=== PATIENT | female | born 1975 | race Caucasian/White ===

== ENCOUNTER 2016-06-05 05:12 | Inpatient (IN) | payer MEDICAID ==
--- NOTE | 2016-06-05 05:29 | ED Physician Chart ---
Chief Complaint/HPI - Patient Information Date Seen:: 06/05/16 Time Seen:: 05:15 Chief Complaint:: epigastric pain History of Present Illness:: 41-year-old female history of cirrhosis and hypertension, complains of acute, severe, burning, 10 out of 10, nonradiating, epigastric and right upper quadrant abdominal pain that started about 1 hour prior to arrival. Has associated nausea and one episode of vomiting. Allergies:: Allergies Allergy/AdvReac Type Severity Reaction Status Date / Time No Known Allergies Allergy Verified 06/05/16 05:19 Historian:: Patient Review:: Nurse's Note Reviewed Review of Systems - Review of Systems Other: Complete system review otherwise unremarkable except as noted in HPI. Past Medical History - Past Medical History Past Medical History: HTN, Other (cirrhosis) Family History: None Social History: Non Smoker, No Alcohol, No Drug Use, Surgical History: None Psychiatricy History: None Medication: Reviewed Family Medical History - Family Member Mother History Unknown: Yes Ethnicity: Non- Physical Exam - Physical Examination Other:: INITIAL VITAL SIGNS: Reviewed by me GENERAL: Alert and interactive. Mild distress due to pain HEAD: Head is normocephalic and atraumatic EYES: EOMI. . No scleral icterus. No conjunctival injection ENT: Moist mucous membranes. NECK: Supple. No masses. Full range of motion RESPIRATORY: No tachypnea. Clear breath sounds bilaterally. No wheezing, rales, or rhonchi CV: Regular rate and rhythm. No murmurs, rubs, or gallops ABDOMEN: Soft, non-distended, tenderness to palpation along the epigastrium and upper quadrant pain with guarding on deep palpation. No rebound. No masses. EXTREMITIES: No deformity. No cyanosis. No edema. SKIN: Warm and dry. No obvious rashes. NEUROLOGIC: Alert and oriented. Face is symmetric. Speech is normal. Moves all extremities equally. Motor and sensory distally intact. Labs/Radiology/EKG Results - Lab Results Results: Lab Results 06/05/16 06/05/16 06/05/16 Range/Units 05:20 05:20 05:20 WBC 16.9 H (4.8-10.8) Th/cmm RBC 3.58 L (3.80-5.10) Mil/cmm Hgb 11.6 L (11.7-15.5) gm/dL Hct 34.1 L (35.0-45.0) % MCV 95.4 (81-100) fl MCH 32.6 H (27.0-31.0) pg MCHC Differential 34.1 (28.0-36.0) pg RDW 14.7 (11.5-20.0) % Plt Count 215 (150-400) Th/cmm MPV 7.7 fl PT 14.3 H (9.5-11.5) SECONDS INR 1.36 (0.5-1.4) Sodium (136-145) mEq/L Potassium (3.5-5.1) mEq/L Chloride (98-107) mEq/L Carbon Dioxide (21.0-31.0) mEq/L Anion Gap (7.0-16.0) BUN (7-25) mg/dL Creatinine (0.6-1.2) mg/dL Est GFR ( Amer) (>90) ml/min Est GFR (Non-Af Amer) ml/min BUN/Creatinine Ratio Glucose (70-105) mg/dL Whole Bld Lactic Acid (0.60-1.99) mmol/L Calcium (8.6-10.3) mg/dL Total Bilirubin (0.3-1.0) mg/dL AST (13-39) U/L ALT (7-52) U/L Alkaline Phosphatase (34-104) U/L Creatine Kinase 29 L (30-223) U/L Troponin I (0.01-0.05) ng/mL B-Natriuretic Peptide (5.0-100.0) pg/mL Total Protein (6.0-8.3) gm/dL Albumin (3.7-5.3) gm/dL Globulin gm/dL Albumin/Globulin Ratio (1.0-1.8) Triglycerides 145 (<150) mg/dL Cholesterol 370 H (<200) mg/dL LDL Cholesterol Direct 127 (75-193) mg/dL HDL Cholesterol 56 (23-92) mg/dL Lipase (11-82) U/L 06/05/16 06/05/16 06/05/16 Range/Units 05:20 05:20 05:20 WBC (4.8-10.8) Th/cmm RBC (3.80-5.10) Mil/cmm Hgb (11.7-15.5) gm/dL Hct (35.0-45.0) % MCV (81-100) fl MCH (27.0-31.0) pg MCHC Differential (28.0-36.0) pg RDW (11.5-20.0) % Plt Count (150-400) Th/cmm MPV fl PT (9.5-11.5) SECONDS INR (0.5-1.4) Sodium 136 (136-145) mEq/L Potassium 3.7 (3.5-5.1) mEq/L Chloride 105 (98-107) mEq/L Carbon Dioxide 24.0 (21.0-31.0) mEq/L Anion Gap 10.7 (7.0-16.0) BUN 13 (7-25) mg/dL Creatinine 0.8 (0.6-1.2) mg/dL Est GFR ( Amer) > 60.0 (>90) ml/min Est GFR (Non-Af Amer) > 60.0 ml/min BUN/Creatinine Ratio 16.3 Glucose 98 (70-105) mg/dL Whole Bld Lactic Acid (0.60-1.99) mmol/L Calcium 9.0 (8.6-10.3) mg/dL Total Bilirubin 3.0 H (0.3-1.0) mg/dL AST 59 H (13-39) U/L ALT 39 (7-52) U/L Alkaline Phosphatase 114 H (34-104) U/L Creatine Kinase (30-223) U/L Troponin I 0.02 (0.01-0.05) ng/mL B-Natriuretic Peptide 211.0 H (5.0-100.0) pg/mL Total Protein 7.6 (6.0-8.3) gm/dL Albumin 3.1 L (3.7-5.3) gm/dL Globulin 4.5 gm/dL Albumin/Globulin Ratio 0.7 L (1.0-1.8) Triglycerides (<150) mg/dL Cholesterol (<200) mg/dL LDL Cholesterol Direct (75-193) mg/dL HDL Cholesterol (23-92) mg/dL Lipase 79 (11-82) U/L 06/05/16 Range/Units 05:57 WBC (4.8-10.8) Th/cmm RBC (3.80-5.10) Mil/cmm Hgb (11.7-15.5) gm/dL Hct (35.0-45.0) % MCV (81-100) fl MCH (27.0-31.0) pg MCHC Differential (28.0-36.0) pg RDW (11.5-20.0) % Plt Count (150-400) Th/cmm MPV fl PT (9.5-11.5) SECONDS INR (0.5-1.4) Sodium (136-145) mEq/L Potassium (3.5-5.1) mEq/L Chloride (98-107) mEq/L Carbon Dioxide (21.0-31.0) mEq/L Anion Gap (7.0-16.0) BUN (7-25) mg/dL Creatinine (0.6-1.2) mg/dL Est GFR ( Amer) (>90) ml/min Est GFR (Non-Af Amer) ml/min BUN/Creatinine Ratio Glucose (70-105) mg/dL Whole Bld Lactic Acid 0.85 (0.60-1.99) mmol/L Calcium (8.6-10.3) mg/dL Total Bilirubin (0.3-1.0) mg/dL AST (13-39) U/L ALT (7-52) U/L Alkaline Phosphatase (34-104) U/L Creatine Kinase (30-223) U/L Troponin I (0.01-0.05) ng/mL B-Natriuretic Peptide (5.0-100.0) pg/mL Total Protein (6.0-8.3) gm/dL Albumin (3.7-5.3) gm/dL Globulin gm/dL Albumin/Globulin Ratio (1.0-1.8) Triglycerides (<150) mg/dL Cholesterol (<200) mg/dL LDL Cholesterol Direct (75-193) mg/dL HDL Cholesterol (23-92) mg/dL Lipase (11-82) U/L - Radiology Results Results: Ultrasound abdomen quadrant. Preliminary report Thickened gallbladder wall with surrounding inflammation Hepatomegaly - EKG Interpretations Comments:: 12-lead EKG Interpretation by Calos Dupree MD: Normal Sinus Rhythm with ventricular rate of 73 beats per minute Normal axis Normal intervals No acute ST or T wave changes. No obvious STEMI ED Septic Shock - . Is Septic Shock (SBP<90, OR Lactate>4 mmol\L) present?: No Reassessment (Disposition) - Reassessment Reassessment:: Patient appears to have acalculus cholecystitis. Gave IV Zosyn. Also gave IV antiemetics and IV analgesics. Symptoms improved. Discussed with admitting physician. Patient admitted for further workup and treatment. Reassessment Condition:: Improved - Diagnosis Diagnosis:: Acalculous cholecystitis Hypertension - Patient Disposition Discharge/Transfer:: Acute Care w/in [facility] Admitted to:: Med/Surg Spoke to:: Stephanie Wells Time:: 07:01 Condition at Disposition:: Improved ED Discharge Plan - Patient Disposition Admit/Discharge/Transfer: Acute Care w/in this hosp
[2016-06-05] MEDS ORDERED: Prochlorperazine 5 mg/mL 2mL Vial IVP STA (05:34)
[2016-06-05] MEDS ORDERED: Sodium Chloride 0.9% 1,000 ML IV ONE (05:34)
[2016-06-05] MEDS ORDERED: Donnatal Liq 5 ML UDC PO STA (05:41)
[2016-06-05] MEDS ORDERED: Maalox 30 mL Cup PO STA (05:41)
[2016-06-05] MEDS ORDERED: Prochlorperazine 5 mg/mL 2mL Vial ONE (05:41)
[2016-06-05 05:47] LABS: HEMATOCRIT 34.1 % (35.0-45.0); HEMOGLOBIN 11.6 gm/dL (11.7-15.5); MEAN CELL VOLUME 95.4 fl (81-100); MEAN CORPUSCULAR HEMOGLOBIN 32.6 pg (27.0-31.0); MEAN CORPUSCULAR HGB CONC 34.1 pg (28.0-36.0); MEAN PLATELET VOLUME 7.7 fl; PLATELET COUNT 215 Th/cmm (150-400); RED BLOOD COUNT 3.58 Mil/cmm (3.80-5.10); RED CELL DISTRIBUTION WIDTH 14.7 % (11.5-20.0)
[2016-06-05 05:50] LABS: WHITE BLOOD COUNT 16.9 Th/cmm (4.8-10.8)
[2016-06-05] MEDS ORDERED: Maalox 30 mL Cup ONE (06:00)
[2016-06-05] MEDS ORDERED: Donnatal Liq 5 ML UDC ONE (06:01)
[2016-06-05 06:04] LABS: INR 1.36 (0.5-1.4); PROTHROMBIN TIME (TEST) 14.3 SECONDS (9.5-11.5)
[2016-06-05 06:09] LABS: CHOLESTEROL 370 mg/dL (<200); TRIGLYCERIDES 145 mg/dL (<150)
[2016-06-05 06:11] LABS: ALB/GLOB RATIO 0.7 (1.0-1.8); ALKALINE PHOSPHATASE 114 U/L (34-104); ANION GAP 10.7 (7.0-16.0); BUN - UREA NITROGEN 13 mg/dL (7-25); BUN/CREATININE RATIO 16.3; CHLORIDE 105 mEq/L (98-107); CREATININE - SERUM 0.8 mg/dL (0.6-1.2); POTASSIUM SERUM 3.7 mEq/L (3.5-5.1); SGOT 59 U/L (13-39); SGPT/ALT 39 U/L (7-52); SODIUM SERUM 136 mEq/L (136-145); TROP I 0.02 ng/mL (0.01-0.05)
[2016-06-05 06:57] LABS: GLUCOSE 98 mg/dL (70-105)
[2016-06-05] MEDS ORDERED: Piperacillin Sodium/Tazobact 3.375 gm Vial IV ONE (07:01)
[2016-06-05 07:11] LABS: URINE BILIRUBIN NEGATIVE (NEGATIVE); URINE BLOOD NEGATIVE (NEGATIVE); URINE COLOR YELLOW; URINE GLUCOSE (UA) NEGATIVE (NEGATIVE); URINE KETONE NEGATIVE (NEGATIVE); URINE PROTEIN NEGATIVE (NEGATIVE); URINE UROBILINOGEN 0.2 E.U./dL (0.2 - 1.0)
[2016-06-05 07:13] LABS: URINE BACTERIA OCCASIONAL /hpf (NONE SEEN); URINE EPITHELIAL CELLS OCCASIONAL /lpf (FEW); URINE RBC 0-1 /hpf (0-5); URINE WBC NONE SEEN /hpf (0-5)
[2016-06-05] MEDS ORDERED: Morphine Sulfate 2 mg/mL 1mL Syr IVP PRN ×2 (07:16→07:18)
[2016-06-05 07:44] LABS: BILIRUBIN,DIRECT 1.13 mg/dL (0.0-0.2)
[2016-06-05 07:54] LABS: AMPHETAMINE URINE NEGATIVE (NEGATIVE); BARBITURATES URINE NEGATIVE (NEGATIVE)
[2016-06-05 08:46] LABS: BAND NEUTROPHILE 6 % (0-10); NEUTROPHILS 72 % (40-80); PLATELET ESTIMATE ADEQUATE (NORMAL); PLATELET MORPHOLOGY NORMAL (NORMAL); TOTAL CELLS COUNTED 100
[2016-06-05] MEDS: D5-0.45NS 1,000 ML IV SCH (10:26)
--- NOTE | 2016-06-05 11:26 | Diagnostic Imaging Report ---
Abdominal ultrasound (limited, gallbladder) HISTORY: Pain Exam is limited to the gallbladder region. There is a dilated gallbladder. No intraluminal abnormalities. Specific, no calculi seen. Common bile duct measures 4 mm. IMPRESSION: 1. Limited exam due to the gallbladder region 2. Dilated gallbladder. No definite calculi identified.
--- NOTE | 2016-06-05 11:38 | General Progress Note ---
Subjective - Review of Systems Service Date: 06/05/16 Events since last encounter: consult dictated liver function tests abnormal claims she stopped drinkling a month ago after similar visit to [facility] when she was told she has cirrhosis Plan : HiDA scan repeat labs in AM will not recommend surgery at this time - high risk for perioperative bleeding Objective - Results Result Diagrams: 06/05/16 05:20 06/05/16 05:20 Recent Labs: Laboratory Last Values WBC 16.9 Th/cmm (4.8-10.8) H 06/05/16 05:20 RBC 3.58 Mil/cmm (3.80-5.10) L 06/05/16 05:20 Hgb 11.6 gm/dL (11.7-15.5) L 06/05/16 05:20 Hct 34.1 % (35.0-45.0) L 06/05/16 05:20 MCV 95.4 fl (81-100) 06/05/16 05:20 MCH 32.6 pg (27.0-31.0) H 06/05/16 05:20 MCHC Differential 34.1 pg (28.0-36.0) 06/05/16 05:20 RDW 14.7 % (11.5-20.0) 06/05/16 05:20 Plt Count 215 Th/cmm (150-400) 06/05/16 05:20 MPV 7.7 fl 06/05/16 05:20 Band Neutrophils % 6 % (0-10) 06/05/16 05:20 Neutrophils (Manual) 72 % (40-80) 06/05/16 05:20 Lymphocytes 14 % (20-50) L 06/05/16 05:20 Monocytes 8 % (2-10) 06/05/16 05:20 Platelet Estimate ADEQUATE (NORMAL) 06/05/16 05:20 Platelet Morphology NORMAL (NORMAL) 06/05/16 05:20 RBC Morph Micro Appear NORMAL (NORMAL) 06/05/16 05:20 PT 14.3 SECONDS (9.5-11.5) H 06/05/16 05:20 INR 1.36 (0.5-1.4) 06/05/16 05:20 Sodium 136 mEq/L (136-145) 06/05/16 05:20 Potassium 3.7 mEq/L (3.5-5.1) 06/05/16 05:20 Chloride 105 mEq/L (98-107) 06/05/16 05:20 Carbon Dioxide 24.0 mEq/L (21.0-31.0) 06/05/16 05:20 Anion Gap 10.7 (7.0-16.0) 06/05/16 05:20 BUN 13 mg/dL (7-25) 06/05/16 05:20 Creatinine 0.8 mg/dL (0.6-1.2) 06/05/16 05:20 Est GFR ( Amer) > 60.0 ml/min (>90) 06/05/16 05:20 Est GFR (Non-Af Amer) > 60.0 ml/min 06/05/16 05:20 BUN/Creatinine Ratio 16.3 06/05/16 05:20 Glucose 98 mg/dL (70-105) 06/05/16 05:20 Whole Bld Lactic Acid 0.85 mmol/L (0.60-1.99) 06/05/16 05:57 Calcium 9.0 mg/dL (8.6-10.3) 06/05/16 05:20 Total Bilirubin 3.0 mg/dL (0.3-1.0) H 06/05/16 05:20 Direct Bilirubin 1.13 mg/dL (0.0-0.2) H 06/05/16 05:20 AST 59 U/L (13-39) H 06/05/16 05:20 ALT 39 U/L (7-52) 06/05/16 05:20 Alkaline Phosphatase 114 U/L (34-104) H 06/05/16 05:20 Creatine Kinase 29 U/L (30-223) L 06/05/16 05:20 Troponin I 0.02 ng/mL (0.01-0.05) 06/05/16 05:20 B-Natriuretic Peptide 211.0 pg/mL (5.0-100.0) H 06/05/16 05:20 Total Protein 7.6 gm/dL (6.0-8.3) 06/05/16 05:20 Albumin 3.1 gm/dL (3.7-5.3) L 06/05/16 05:20 Globulin 4.5 gm/dL 06/05/16 05:20 Albumin/Globulin Ratio 0.7 (1.0-1.8) L 06/05/16 05:20 Triglycerides 145 mg/dL (<150) 06/05/16 05:20 Cholesterol 370 mg/dL (<200) H 06/05/16 05:20 LDL Cholesterol Direct 127 mg/dL (75-193) 06/05/16 05:20 HDL Cholesterol 56 mg/dL (23-92) 06/05/16 05:20 Lipase 79 U/L (11-82) 06/05/16 05:20 Urine Source CLEAN C 06/05/16 07:00 Urine Color YELLOW 06/05/16 07:00 Urine Clarity SL. CLOUDY (CLEAR) 06/05/16 07:00 Urine pH 7.0 06/05/16 07:00 Ur Specific [place] (1.005-1.030) 06/05/16 07:00 Urine Protein NEGATIVE mg/dL (NEGATIVE) 06/05/16 07:00 Urine Glucose (UA) NEGATIVE mg/dL (NEGATIVE) 06/05/16 07:00 Urine Ketones NEGATIVE mg/dL (NEGATIVE) 06/05/16 07:00 Urine Blood NEGATIVE (NEGATIVE) 06/05/16 07:00 Urine Nitrate NEGATIVE (NEGATIVE) 06/05/16 07:00 Urine Bilirubin NEGATIVE (NEGATIVE) 06/05/16 07:00 Urine Urobilinogen 0.2 E.U./dL (0.2 - 1.0) 06/05/16 07:00 Ur Leukocyte Esterase NEGATIVE (NEGATIVE) 06/05/16 07:00 Urine RBC 0-1 /hpf (0-5) 06/05/16 07:00 Urine WBC NONE SEEN /hpf (0-5) 06/05/16 07:00 Ur Epithelial Cells OCCASIONAL /lpf (FEW) 06/05/16 07:00 Urine Bacteria OCCASIONAL /hpf (NONE SEEN) 06/05/16 07:00 Urine Opiates Screen NEGATIVE (NEGATIVE) 06/05/16 07:00 Ur Barbiturates Screen NEGATIVE (NEGATIVE) 06/05/16 07:00 Ur Phencyclidine Scrn NEGATIVE (NEGATIVE) 06/05/16 07:00 Amphetamines Screen NEGATIVE (NEGATIVE) 06/05/16 07:00 U Methamphetamines Scrn NEGATIVE (NEGATIVE) 06/05/16 07:00 U Benzodiazepines Scrn NEGATIVE (NEGATIVE) 06/05/16 07:00 U Cocaine Metab Screen NEGATIVE (NEGATIVE) 06/05/16 07:00 U Cannabinoids Screen NEGATIVE (NEGATIVE) 06/05/16 07:00 - Physical Exam Vitals and I&O: Vital Signs Temp 98.1 F 06/05/16 07:31 Pulse 82 06/05/16 07:31 Resp 15 06/05/16 07:31 BP 121/65 06/05/16 07:31 Pulse Ox 98 06/05/16 07:31 Active Medications: Current Medications Dextrose/Sodium Chloride (D5-0.45ns) 1,000 mls @ 75 mls/hr IV .[id number] KELLY Stop: 08/04/16 07:29 Last Admin: 06/05/16 10:26 Dose: 75 mls/hr Piperacillin Sod/Tazobactam (Sod 3.375 gm/ Sodium Chloride) 50 mls @ 100 mls/ hr IV Q8HR KELLY Stop: 08/04/16 12:59 Morphine Sulfate (Morphine) 1 mg IVP Q3HR PRN PRN Reason: Pain (Mild) Stop: 08/04/16 07:15 Morphine Sulfate (Morphine) 2 mg IVP Q3HR PRN PRN Reason: Pain (Severe) Stop: 08/04/16 07:17 Ondansetron HCl (Zofran) 4 mg IV Q6H PRN PRN Reason: Nausea / Vomiting Stop: 08/04/16 07:29 Assessment/Plan - Problem List Patient Problems: All Active Problems epigastric pain (Acute) epigastric pain (Acute)
--- NOTE | 2016-06-05 12:25 | Admit Criteria Form ---
Admit Criteria Forms - Admit Criteria Diagnosis: GALLBLADDER OR BILE DUCT INFLAMMATION OR STONE Clinical Indications for Admission to Inpatient Care ( Place 'X' for any and all applicable criteria): Admission is indicated for patients with ANY ONE of the following(1)(2)(3)(4)(5) : [ ]I. Acute cholecystitis as indicated by ALL of the following: [ ]a) Right upper quadrant pain, mass, or tenderness [ ]b) Systemic signs of inflammation indicated by ANY ONE of the following: [ ]i) Fever [ ]ii) C-reactive protein level greater than 10 mg/L (95 nmol/L) [ ]iii) White blood cell count greater than 10,000/mm3 (10 x109/L) or less than 4000/mm3 (4 x109/L) [X ]II. Inpatient admission required rather than observation care (Also use Gallbladder or Bile Duct Inflammation or Stone: Observation Care as appropriate) because of ANY ONE of the following: [ ]a) Common bile duct obstruction diagnosed [ ]b) Vomiting that is severe or persistent [X ]c) Severe pain requiring acute inpatient management [ ]d) Signs of intestinal obstruction or peritonitis [A] [ ]e) Severe electrolyte abnormalities requiring inpatient care [ ]f) Absent bowel sounds with complete ileus(8) [ ]g) Hemodynamic instability [ ]h) High fever or infection requiring inpatient admission as indicated by ANY ONE of the following (9): [ ]1) Appropriate outpatient or observation care antimicrobial Treatment. unavailable, not effective, or not feasible [ ]2) Temperature greater than 104.9 degrees F (40.5 degrees C) (oral) [ ]3) Temperature greater than 103.1 degrees F (39.5 degrees C) (oral) or less than 96.8 degrees F (36 degrees C) (rectal) that does not respond to all emergency treatment measures [ ]4) Documented bacteremia [ ]i) IV fluid to replace significant ongoing losses (greater than 3 L/m2 per day) [ ]j) Percutaneous or open drainage (eg, abscess, biliary tract) procedures [ ]k) Immediate inpatient surgery [ ]l) Other condition, treatment or monitoring requiring inpatient admission [ ]III. Acute cholangitis as indicated by ALL of the following(9)(10): [ ]a) Systemic signs of inflammation indicated by ANY ONE of the following: [ ]i) Fever [ ]ii) C-reactive protein level greater than 10 mg/L (95 nmol /L) [ ]iii) White blood cell count greater than 10,000/mm3 (10 x109/L) or less than 4000/mm3 (4 x109/L) [ ]b) Evidence of common bile duct disease indicated by ANY ONE of the following: [ ]i) Total serum bilirubin level greater than or equal to 2 mg/dL (34 micromoles/L) [ ]ii) Liver function test (alkaline phosphatase (ALP), r- glutamyltransferase (GGT), aspartate aminotransferase (AST), or alanine aminotransferase (ALT)) greater than 1.5 times the upper limit of normal[B] [ ]iii) Hepatobiliary imaging showing biliary dilatation or evidence of etiology (eg, stricture, stone, previously placed stent) Extended stay beyond goal length of stay may be needed for (1)(2)): [ ]a) Bacteremia or Hemodynamic instability [ ]b) Cholecystectomy [ ]c) Other surgical procedure(24) [ ]d) Percutaneous or endoscopic ultrasound-guided cholecystostomy The original [facility] [employer] content created by [facility] [employer] has been revised. The portions of the content which have been revised are identified through the use of italic text or in bold, and [facility] has neither reviewed nor approved the modified material. All other unmodified content is copyright [facility]. Please see references footnoted in the original [facility] edition 2016 Admit Criteria Met?: Yes
--- NOTE | 2016-06-05 12:45 | Consultation ---
REFERRING PHYSICIAN: Dr. Wells. REASON FOR CONSULTATION: Abdominal pain. Thank you for referring this patient to me. HISTORY OF PRESENT ILLNESS: This is a 41-year-old female who started having severe abdominal pain on the night of admission came in to Emergency Room, where the laboratory studies showed an elevated bilirubin and rest of the liver function test. The cholesterol is also high at 370. See claimed that a month ago she was at [facility] where she was diagnosed with cirrhosis of the liver. I did not see any abnormality of the gallbladder at that time. She admits to having to drinking heavily for the last 3 years, but claimed that since her visit to ER at [facility], she stopped drinking, how true this is, is hard to determine at this point. The ER physician reports that there are findings consistent with noncalculous cholecystitis. PHYSICAL EXAMINATION: Liver is enlarged, at least 6 inches below the costal margin. There is tenderness present. RECOMMENDATIONS: HIDA scan has been ordered. In the meantime, I would recommend no surgical intervention on this patient for possibility of perioperative bleeding. We will recheck labs and HIDA scan and go on from there. JOB# [id number]
[2016-06-05] MEDS ORDERED: Pneumococcal Vaccine 0.5 mL Vial IM ONE (15:56)
--- NOTE | 2016-06-05 19:10 | General Progress Note ---
Subjective - Review of Systems Service Date: 06/05/16 Objective - Results Result Diagrams: 06/05/16 05:20 06/05/16 05:20 Recent Labs: Laboratory Last Values WBC 16.9 Th/cmm (4.8-10.8) H 06/05/16 05:20 RBC 3.58 Mil/cmm (3.80-5.10) L 06/05/16 05:20 Hgb 11.6 gm/dL (11.7-15.5) L 06/05/16 05:20 Hct 34.1 % (35.0-45.0) L 06/05/16 05:20 MCV 95.4 fl (81-100) 06/05/16 05:20 MCH 32.6 pg (27.0-31.0) H 06/05/16 05:20 MCHC Differential 34.1 pg (28.0-36.0) 06/05/16 05:20 RDW 14.7 % (11.5-20.0) 06/05/16 05:20 Plt Count 215 Th/cmm (150-400) 06/05/16 05:20 MPV 7.7 fl 06/05/16 05:20 Band Neutrophils % 6 % (0-10) 06/05/16 05:20 Neutrophils (Manual) 72 % (40-80) 06/05/16 05:20 Lymphocytes 14 % (20-50) L 06/05/16 05:20 Monocytes 8 % (2-10) 06/05/16 05:20 Platelet Estimate ADEQUATE (NORMAL) 06/05/16 05:20 Platelet Morphology NORMAL (NORMAL) 06/05/16 05:20 RBC Morph Micro Appear NORMAL (NORMAL) 06/05/16 05:20 PT 14.3 SECONDS (9.5-11.5) H 06/05/16 05:20 INR 1.36 (0.5-1.4) 06/05/16 05:20 Sodium 136 mEq/L (136-145) 06/05/16 05:20 Potassium 3.7 mEq/L (3.5-5.1) 06/05/16 05:20 Chloride 105 mEq/L (98-107) 06/05/16 05:20 Carbon Dioxide 24.0 mEq/L (21.0-31.0) 06/05/16 05:20 Anion Gap 10.7 (7.0-16.0) 06/05/16 05:20 BUN 13 mg/dL (7-25) 06/05/16 05:20 Creatinine 0.8 mg/dL (0.6-1.2) 06/05/16 05:20 Est GFR ( Amer) > 60.0 ml/min (>90) 06/05/16 05:20 Est GFR (Non-Af Amer) > 60.0 ml/min 06/05/16 05:20 BUN/Creatinine Ratio 16.3 06/05/16 05:20 Glucose 98 mg/dL (70-105) 06/05/16 05:20 Whole Bld Lactic Acid 0.85 mmol/L (0.60-1.99) 06/05/16 05:57 Calcium 9.0 mg/dL (8.6-10.3) 06/05/16 05:20 Total Bilirubin 3.0 mg/dL (0.3-1.0) H 06/05/16 05:20 Direct Bilirubin 1.13 mg/dL (0.0-0.2) H 06/05/16 05:20 AST 59 U/L (13-39) H 06/05/16 05:20 ALT 39 U/L (7-52) 06/05/16 05:20 Alkaline Phosphatase 114 U/L (34-104) H 06/05/16 05:20 Creatine Kinase 29 U/L (30-223) L 06/05/16 05:20 Troponin I 0.02 ng/mL (0.01-0.05) 06/05/16 05:20 B-Natriuretic Peptide 211.0 pg/mL (5.0-100.0) H 06/05/16 05:20 Total Protein 7.6 gm/dL (6.0-8.3) 06/05/16 05:20 Albumin 3.1 gm/dL (3.7-5.3) L 06/05/16 05:20 Globulin 4.5 gm/dL 06/05/16 05:20 Albumin/Globulin Ratio 0.7 (1.0-1.8) L 06/05/16 05:20 Triglycerides 145 mg/dL (<150) 06/05/16 05:20 Cholesterol 370 mg/dL (<200) H 06/05/16 05:20 LDL Cholesterol Direct 127 mg/dL (75-193) 06/05/16 05:20 HDL Cholesterol 56 mg/dL (23-92) 06/05/16 05:20 Lipase 79 U/L (11-82) 06/05/16 05:20 Urine Source CLEAN C 06/05/16 07:00 Urine Color YELLOW 06/05/16 07:00 Urine Clarity SL. CLOUDY (CLEAR) 06/05/16 07:00 Urine pH 7.0 06/05/16 07:00 Ur Specific [place] (1.005-1.030) 06/05/16 07:00 Urine Protein NEGATIVE mg/dL (NEGATIVE) 06/05/16 07:00 Urine Glucose (UA) NEGATIVE mg/dL (NEGATIVE) 06/05/16 07:00 Urine Ketones NEGATIVE mg/dL (NEGATIVE) 06/05/16 07:00 Urine Blood NEGATIVE (NEGATIVE) 06/05/16 07:00 Urine Nitrate NEGATIVE (NEGATIVE) 06/05/16 07:00 Urine Bilirubin NEGATIVE (NEGATIVE) 06/05/16 07:00 Urine Urobilinogen 0.2 E.U./dL (0.2 - 1.0) 06/05/16 07:00 Ur Leukocyte Esterase NEGATIVE (NEGATIVE) 06/05/16 07:00 Urine RBC 0-1 /hpf (0-5) 06/05/16 07:00 Urine WBC NONE SEEN /hpf (0-5) 06/05/16 07:00 Ur Epithelial Cells OCCASIONAL /lpf (FEW) 06/05/16 07:00 Urine Bacteria OCCASIONAL /hpf (NONE SEEN) 06/05/16 07:00 Urine Opiates Screen NEGATIVE (NEGATIVE) 06/05/16 07:00 Ur Barbiturates Screen NEGATIVE (NEGATIVE) 06/05/16 07:00 Ur Phencyclidine Scrn NEGATIVE (NEGATIVE) 06/05/16 07:00 Amphetamines Screen NEGATIVE (NEGATIVE) 06/05/16 07:00 U Methamphetamines Scrn NEGATIVE (NEGATIVE) 06/05/16 07:00 U Benzodiazepines Scrn NEGATIVE (NEGATIVE) 06/05/16 07:00 U Cocaine Metab Screen NEGATIVE (NEGATIVE) 06/05/16 07:00 U Cannabinoids Screen NEGATIVE (NEGATIVE) 06/05/16 07:00 - Physical Exam Vitals and I&O: Vital Signs Temp 98.4 F 06/05/16 15:55 Pulse 96 06/05/16 15:55 Resp 19 06/05/16 15:55 BP 129/77 06/05/16 15:55 Pulse Ox 99 06/05/16 11:55 Intake & Output 06/05/16 06/05/16 06/06/16 06:59 18:59 06:59 Intake Total 350 Balance 350 Intake: Intake, IV Amount 50 Piperacillin Sodium/ 50 Tazobact 3.375 gm In Sodium Chloride 0.9% 50 ml @ 100 mls/hr IV Q8HR [facility] Rx#:[id number] Oral 300 Other: # Voids 3 # Bowel Movements 0 Active Medications: Current Medications Dextrose/Sodium Chloride (D5-0.45ns) 1,000 mls @ 75 mls/hr IV .[id number] [facility] Stop: 08/04/16 07:29 Last Admin: 06/05/16 10:26 Dose: 75 mls/hr Piperacillin Sod/Tazobactam (Sod 3.375 gm/ Sodium Chloride) 50 mls @ 100 mls/ hr IV Q8HR [facility] Stop: 08/04/16 12:59 Last Infusion: 06/05/16 15:00 Dose: Infused Morphine Sulfate (Morphine) 1 mg IVP Q3HR PRN PRN Reason: Pain (Mild) Stop: 08/04/16 07:15 Morphine Sulfate (Morphine) 2 mg IVP Q3HR PRN PRN Reason: Pain (Severe) Stop: 08/04/16 07:17 Ondansetron HCl (Zofran) 4 mg IV Q6H PRN PRN Reason: Nausea / Vomiting Stop: 08/04/16 07:29 Assessment/Plan - Problem List Patient Problems: All Active Problems epigastric pain (Acute) epigastric pain (Acute)
--- NOTE | 2016-06-05 20:14 | Consultation ---
REASON FOR CONSULTATION: Abdominal distention, history of cirrhosis. HISTORY OF PRESENT ILLNESS: This is a 41-year-old female with past medical history significant for alcoholic cirrhosis, which was diagnosed in 04/2016. The patient states she had symptoms of abdominal pain at that time and had an endoscopy, which was performed; however, she is unclear of the results of that. The patient presents on this admission with epigastric right upper quadrant pain, she states after eating corned beef and cabbage. She also had associated nausea. The patient states she has never had any prior paracentesis. No episodes of hematemesis. No hospitalizations for hepatic encephalopathy. She said she stopped drinking alcohol 1 week prior to admission back in April at [facility]. PAST MEDICAL HISTORY: As per HPI. In addition, the patient has history of hypertension. SOCIAL HISTORY: Positive for alcohol, which she stopped 1 month ago. FAMILY HISTORY: No family history of GI malignancies. PAST SURGICAL HISTORY: No surgical history. ALLERGIES: No known drug allergies. MEDICATIONS: Please see medication reconciliation form. REVIEW OF SYSTEMS: Per HPI. PHYSICAL EXAMINATION: VITAL SIGNS: Temperature is 98, pulse 82, respirations 15, blood pressure 121/65 GENERAL: No acute distress. CARDIOVASCULAR: Regular rate and rhythm. ABDOMEN: Soft. LABORATORY DATA: White count 16.9, hemoglobin 11.6, platelets are 215. INR is 1.36. Ultrasound shows some thickening of the gallbladder. ASSESSMENT AND PLAN: This is a 41-year-old female with history of alcoholic cirrhosis with epigastric right upper quadrant pain. Ultrasound, ____ showing some thickness of the gallbladder. We will obtain HIDA scan to rule out cholecystitis. There was no obvious common bile duct stones. We will try to obtain previous endoscopy report from [facility]. JOB# [id number]
--- NOTE | 2016-06-05 22:37 | History & Physical ---
HISTORY OF PRESENT ILLNESS: The patient is a 41-year-old female patient. The patient is known to have history of cirrhosis, came to the Emergency Room complaining of right upper quadrant ____ started around 4:00. The patient is complaining of 10/10, nonradiating epigastric pain and the patient had associated nausea and vomiting. The patient is also known to have history of hypertension. REVIEW OF SYSTEMS: Except for the right upper quadrant abdominal pain and epigastric pain, otherwise negative. Other than what ____ noted is negative. PAST MEDICAL HISTORY: History of hypertension, history of cirrhosis of the liver. PHYSICAL EXAMINATION: VITAL SIGNS: Stable. HEAD: Normal. ENT: Normal. NECK: Supple, nontender. ABDOMEN: Soft. Right upper quadrant tenderness noted. CENTRAL NERVOUS SYSTEM: Grossly normal. LABORATORY DATA: The patient's white count was 16.9, hemoglobin 11.6, hematocrit was okay. The patient had an ultrasound that showed thickening gallbladder, surrounding inflammation and hepatomegaly. EKG was normal sinus rhythm. DIAGNOSES: Acute cholecystitis, rule out cholangitis; history of cirrhosis of the liver; history of hypertension. PLAN: The patient is going to be admitted. The patient is going to have HIDA scan and we will have GI doctor see the patient as well as the surgeon see the patient. The patient is going to be on antibiotics and also, Dr. Witt will see the patient. I will follow the patient. JOB# [id number]
[2016-06-06] MEDS: D5-0.45NS 1,000 ML IV SCH ×2 (00:37→17:15)
--- NOTE | 2016-06-06 06:14 | Consultation ---
REFERRING PHYSICIAN: Dr. Wells. REASON FOR CONSULTATION: Acute cholecystitis. HISTORY OF PRESENT ILLNESS: The patient is a 41-year-old female with a past medical history of cirrhosis and hypertension presented with epigastric pain 10/ 10 associated with nausea. She took the Tums and she vomited. On initial evaluation, the patient's temperature was 98.1 degrees Fahrenheit and WBC count was 16,900. The patient has elevated liver enzymes and ultrasound of the abdomen showed limited exam, dilated gallbladder. The patient was admission with a diagnosis of acute cholecystitis and started on Zosyn. ID consult was called for the antibiotic management. PAST MEDICAL HISTORY: Includes hypertension and cirrhosis. ALLERGIES: NKDA. MEDICATIONS: As per medication reconciliation sheet. Antibiotic goins, the patient is on Zosyn. FAMILY HISTORY: Noncontributory. SOCIAL HISTORY: Denies any smoking, alcohol, or drug use. The patient lives at home. Unmarried. PAST SURGICAL HISTORY: None. PSYCHIATRIC HISTORY: None. REVIEW OF SYSTEMS: GENERAL: The patient has no fever, no chills. HEENT: No diplopia, no photophobia, no sore throat. RESPIRATORY: No cough, no shortness of breath. CVS: No chest pain or palpitation. GASTROINTESTINAL: The patient had abdominal pain in the epigastric area, associated with nausea and vomiting which has resolved. PHYSICAL EXAMINATION: CURRENT VITAL SIGNS: Shows temperature is 98.4, pulse 96, respirations 19, blood pressure 129/77. GENERAL: The patient is comfortable lying in the bed, not in acute distress. HEENT: Head is normocephalic, atraumatic. Oral cavity moist and pink tongue. Eyes: No pallor, no icterus. Pupils: PERRLA, EOMI. NECK: Supple. No JVD, no carotid bruit. Trachea is in midline. CHEST: Bilateral breath sounds. No crackles or wheezing. HEART: S1 and S2 within normal limits. Regular rhythm. No murmur, no gallop. ABDOMEN: Soft, nontender, nondistended. Bowel sounds present. EXTREMITIES: No cyanosis, no clubbing, no edema. NEUROLOGIC: Alert, awake, and oriented x 3. No focal neurologic deficit. LABORATORY DATA: Current labs showed WBC count is 16,900, hemoglobin 11.6, hematocrit 34.1, platelets are 215,000, neutrophils 72%. Sodium is 136, potassium 3.7, chloride 105, bicarbonate is 24, BUN is 13, creatinine 0.8, glucose is 98. Total bilirubin is 3.0. AST is 59, ALT is 39, alkaline phosphatase is 114. Urinalysis shows negative nitrite, negative leuk esterase. Ultrasound of the abdomen suggested dilated gallbladder. HIDA scan is negative. IMPRESSIONS: 1. Suspected acute cholecystitis. 2. Leukocytosis, most likely reactive with sepsis. 3. Cirrhosis. 4. Hypertension. RECOMMENDATION: I agree with Lisa at this time. Thank you Dr. Wells for involving me in taking care of this patient. JOB# [id number] [place]
[2016-06-06 07:06] LABS: HEMATOCRIT 27.9 % (35.0-45.0); HEMOGLOBIN 9.7 gm/dL (11.7-15.5); MEAN CELL VOLUME 95.7 fl (81-100); MEAN CORPUSCULAR HEMOGLOBIN 33.4 pg (27.0-31.0); MEAN CORPUSCULAR HGB CONC 34.9 pg (28.0-36.0); MEAN PLATELET VOLUME 8.3 fl; PLATELET COUNT 150 Th/cmm (150-400); RED BLOOD COUNT 2.91 Mil/cmm (3.80-5.10); RED CELL DISTRIBUTION WIDTH 14.2 % (11.5-20.0)
[2016-06-06 07:15] LABS: ALB/GLOB RATIO 0.7 (1.0-1.8); ALKALINE PHOSPHATASE 53 U/L (34-104); ANION GAP 8.8 (7.0-16.0); BILIRUBIN,TOTAL 4.2 mg/dL (0.3-1.0); BUN - UREA NITROGEN 12 mg/dL (7-25); BUN/CREATININE RATIO 17.1; CALCIUM SERUM 8.4 mg/dL (8.6-10.3); CARBON DIOXIDE 21.8 mEq/L (21.0-31.0); CHLORIDE 106 mEq/L (98-107); CREATININE - SERUM 0.7 mg/dL (0.6-1.2); GLUCOSE 99 mg/dL (70-105); POTASSIUM SERUM 3.6 mEq/L (3.5-5.1); SGOT 55 U/L (13-39); SGPT/ALT 33 U/L (7-52); SODIUM SERUM 133 mEq/L (136-145)
[2016-06-06 07:17] LABS: WHITE BLOOD COUNT 12.5 Th/cmm (4.8-10.8)
[2016-06-06 07:29] LABS: INR 1.52 (0.5-1.4); PROTHROMBIN TIME (TEST) 16.1 SECONDS (9.5-11.5)
[2016-06-06 08:23] LABS: EOSINOPHIL 1 % (0-5); NEUTROPHILS 75 % (40-80); PLATELET ESTIMATE ADEQUATE (NORMAL); PLATELET MORPHOLOGY NORMAL (NORMAL); TOTAL CELLS COUNTED 100
--- NOTE | 2016-06-06 09:50 | Diagnostic Imaging Report ---
Nuclear medicine HIDA scan HISTORY: Pain, assess for possible cholecystitis COMPARISON: Abdominal ultrasound performed on 06/05/2016 Technique/procedure: 5.1 mCi of technetium labeled Choletec was administered intravenously and multiple scintigraphic images were obtained for up to 1 hour. FINDINGS: Prompt hepatic uptake is demonstrated. Gallbladder uptake is seen at 30 minutes. Small bowel uptake was seen at 30 minutes. IMPRESSION: No evidence of cholecystitis.
--- NOTE | 2016-06-06 10:36 | General Progress Note ---
Subjective - Review of Systems Service Date: 06/06/16 Subjective: abd pain Objective - Results Result Diagrams: 06/06/16 06:05 06/06/16 06:05 Recent Labs: Laboratory Last Values WBC 12.5 Th/cmm (4.8-10.8) H D 06/06/16 06:05 RBC 2.91 Mil/cmm (3.80-5.10) L 06/06/16 06:05 Hgb 9.7 gm/dL (11.7-15.5) L 06/06/16 06:05 Hct 27.9 % (35.0-45.0) L D 06/06/16 06:05 MCV 95.7 fl (81-100) 06/06/16 06:05 MCH 33.4 pg (27.0-31.0) H 06/06/16 06:05 MCHC Differential 34.9 pg (28.0-36.0) 06/06/16 06:05 RDW 14.2 % (11.5-20.0) 06/06/16 06:05 Plt Count 150 Th/cmm (150-400) D 06/06/16 06:05 MPV 8.3 fl 06/06/16 06:05 Band Neutrophils % 6 % (0-10) 06/05/16 05:20 Neutrophils (Manual) 75 % (40-80) 06/06/16 06:05 Lymphocytes 17 % (20-50) L 06/06/16 06:05 Monocytes 7 % (2-10) 06/06/16 06:05 Eosinophils 1 % (0-5) 06/06/16 06:05 Platelet Estimate ADEQUATE (NORMAL) 06/06/16 06:05 Platelet Morphology NORMAL (NORMAL) 06/06/16 06:05 RBC Morph Micro Appear NORMAL (NORMAL) 06/06/16 06:05 PT 16.1 SECONDS (9.5-11.5) H 06/06/16 06:05 INR 1.52 (0.5-1.4) H 06/06/16 06:05 PTT (Actin FS) 28.9 SECONDS (26.0-38.0) 06/06/16 06:05 Sodium 133 mEq/L (136-145) L 06/06/16 06:05 Potassium 3.6 mEq/L (3.5-5.1) 06/06/16 06:05 Chloride 106 mEq/L (98-107) 06/06/16 06:05 Carbon Dioxide 21.8 mEq/L (21.0-31.0) 06/06/16 06:05 Anion Gap 8.8 (7.0-16.0) 06/06/16 06:05 BUN 12 mg/dL (7-25) 06/06/16 06:05 Creatinine 0.7 mg/dL (0.6-1.2) 06/06/16 06:05 Est GFR ( Amer) > 60.0 ml/min (>90) 06/06/16 06:05 Est GFR (Non-Af Amer) > 60.0 ml/min 06/06/16 06:05 BUN/Creatinine Ratio 17.1 06/06/16 06:05 Glucose 99 mg/dL (70-105) 06/06/16 06:05 Whole Bld Lactic Acid 0.85 mmol/L (0.60-1.99) 06/05/16 05:57 Calcium 8.4 mg/dL (8.6-10.3) L 06/06/16 06:05 Total Bilirubin 4.2 mg/dL (0.3-1.0) H 06/06/16 06:05 Direct Bilirubin 1.13 mg/dL (0.0-0.2) H 06/05/16 05:20 AST 55 U/L (13-39) H 06/06/16 06:05 ALT 33 U/L (7-52) 06/06/16 06:05 Alkaline Phosphatase 53 U/L (34-104) 06/06/16 06:05 Creatine Kinase 29 U/L (30-223) L 06/05/16 05:20 Troponin I 0.02 ng/mL (0.01-0.05) 06/05/16 05:20 B-Natriuretic Peptide 211.0 pg/mL (5.0-100.0) H 06/05/16 05:20 Total Protein 6.1 gm/dL (6.0-8.3) 06/06/16 06:05 Albumin 2.5 gm/dL (3.7-5.3) L 06/06/16 06:05 Globulin 3.6 gm/dL 06/06/16 06:05 Albumin/Globulin Ratio 0.7 (1.0-1.8) L 06/06/16 06:05 Triglycerides 145 mg/dL (<150) 06/05/16 05:20 Cholesterol 370 mg/dL (<200) H 06/05/16 05:20 LDL Cholesterol Direct 127 mg/dL (75-193) 06/05/16 05:20 HDL Cholesterol 56 mg/dL (23-92) 06/05/16 05:20 Lipase 79 U/L (11-82) 06/05/16 05:20 Urine Source CLEAN C 06/05/16 07:00 Urine Color YELLOW 06/05/16 07:00 Urine Clarity SL. CLOUDY (CLEAR) 06/05/16 07:00 Urine pH 7.0 06/05/16 07:00 Ur Specific [place] (1.005-1.030) 06/05/16 07:00 Urine Protein NEGATIVE mg/dL (NEGATIVE) 06/05/16 07:00 Urine Glucose (UA) NEGATIVE mg/dL (NEGATIVE) 06/05/16 07:00 Urine Ketones NEGATIVE mg/dL (NEGATIVE) 06/05/16 07:00 Urine Blood NEGATIVE (NEGATIVE) 06/05/16 07:00 Urine Nitrate NEGATIVE (NEGATIVE) 06/05/16 07:00 Urine Bilirubin NEGATIVE (NEGATIVE) 06/05/16 07:00 Urine Urobilinogen 0.2 E.U./dL (0.2 - 1.0) 06/05/16 07:00 Ur Leukocyte Esterase NEGATIVE (NEGATIVE) 06/05/16 07:00 Urine RBC 0-1 /hpf (0-5) 06/05/16 07:00 Urine WBC NONE SEEN /hpf (0-5) 06/05/16 07:00 Ur Epithelial Cells OCCASIONAL /lpf (FEW) 06/05/16 07:00 Urine Bacteria OCCASIONAL /hpf (NONE SEEN) 06/05/16 07:00 Urine Opiates Screen NEGATIVE (NEGATIVE) 06/05/16 07:00 Ur Barbiturates Screen NEGATIVE (NEGATIVE) 06/05/16 07:00 Ur Phencyclidine Scrn NEGATIVE (NEGATIVE) 06/05/16 07:00 Amphetamines Screen NEGATIVE (NEGATIVE) 06/05/16 07:00 U Methamphetamines Scrn NEGATIVE (NEGATIVE) 06/05/16 07:00 U Benzodiazepines Scrn NEGATIVE (NEGATIVE) 06/05/16 07:00 U Cocaine Metab Screen NEGATIVE (NEGATIVE) 06/05/16 07:00 U Cannabinoids Screen NEGATIVE (NEGATIVE) 06/05/16 07:00 - Physical Exam Vitals and I&O: Vital Signs Temp 96.8 F 06/06/16 07:50 Pulse 64 06/06/16 07:50 Resp 17 06/06/16 07:50 BP 134/80 06/06/16 07:50 Pulse Ox 95 06/06/16 07:50 Intake & Output 06/05/16 06/06/16 06/06/16 18:59 06:59 18:59 Intake Total 350 1050 Balance 350 1050 Intake: Intake, IV Amount 50 1050 D5-0.45NS 1,000 ml @ 75 1000 mls/hr IV .[id number] [facility] Rx #:[id number] Piperacillin Sodium/ 50 50 Tazobact 3.375 gm In Sodium Chloride 0.9% 50 ml @ 100 mls/hr IV Q8HR [facility] Rx#:[id number] Oral 300 Other: # Voids 3 # Bowel Movements 0 Active Medications: Current Medications Dextrose/Sodium Chloride (D5-0.45ns) 1,000 mls @ 75 mls/hr IV .[id number] [facility] Stop: 08/04/16 07:29 Last Admin: 06/06/16 00:37 Dose: 75 mls/hr Piperacillin Sod/Tazobactam (Sod 3.375 gm/ Sodium Chloride) 50 mls @ 100 mls/ hr IV Q8HR [facility] Stop: 08/04/16 12:59 Last Admin: 06/06/16 05:57 Dose: 100 mls/hr Morphine Sulfate (Morphine) 1 mg IVP Q3HR PRN PRN Reason: Pain (Mild) Stop: 08/04/16 07:15 Morphine Sulfate (Morphine) 2 mg IVP Q3HR PRN PRN Reason: Pain (Severe) Stop: 08/04/16 07:17 Ondansetron HCl (Zofran) 4 mg IV Q6H PRN PRN Reason: Nausea / Vomiting Stop: 08/04/16 07:29 General: No acute distress Neck: Supple Cardiovascular: Regular rate Lungs: Clear to auscultation Abdomen: Distended Assessment/Plan - Problem List Patient Problems: All Active Problems cirrhosis of liver (Acute) epigastric pain (Acute) epigastric pain (Acute) htn (Acute) leukocytosis (Acute) - Plan Plan: monitor vitals/diet pain management ID eval
--- NOTE | 2016-06-06 13:19 | General Progress Note ---
Subjective - Review of Systems Service Date: 06/06/16 Events since last encounter: rising LFT, PT rising also continue non surgical treatment Objective - Results Result Diagrams: 06/06/16 06:05 06/06/16 06:05 Recent Labs: Laboratory Last Values WBC 12.5 Th/cmm (4.8-10.8) H D 06/06/16 06:05 RBC 2.91 Mil/cmm (3.80-5.10) L 06/06/16 06:05 Hgb 9.7 gm/dL (11.7-15.5) L 06/06/16 06:05 Hct 27.9 % (35.0-45.0) L D 06/06/16 06:05 MCV 95.7 fl (81-100) 06/06/16 06:05 MCH 33.4 pg (27.0-31.0) H 06/06/16 06:05 MCHC Differential 34.9 pg (28.0-36.0) 06/06/16 06:05 RDW 14.2 % (11.5-20.0) 06/06/16 06:05 Plt Count 150 Th/cmm (150-400) D 06/06/16 06:05 MPV 8.3 fl 06/06/16 06:05 Band Neutrophils % 6 % (0-10) 06/05/16 05:20 Neutrophils (Manual) 75 % (40-80) 06/06/16 06:05 Lymphocytes 17 % (20-50) L 06/06/16 06:05 Monocytes 7 % (2-10) 06/06/16 06:05 Eosinophils 1 % (0-5) 06/06/16 06:05 Platelet Estimate ADEQUATE (NORMAL) 06/06/16 06:05 Platelet Morphology NORMAL (NORMAL) 06/06/16 06:05 RBC Morph Micro Appear NORMAL (NORMAL) 06/06/16 06:05 PT 16.1 SECONDS (9.5-11.5) H 06/06/16 06:05 INR 1.52 (0.5-1.4) H 06/06/16 06:05 PTT (Actin FS) 28.9 SECONDS (26.0-38.0) 06/06/16 06:05 Sodium 133 mEq/L (136-145) L 06/06/16 06:05 Potassium 3.6 mEq/L (3.5-5.1) 06/06/16 06:05 Chloride 106 mEq/L (98-107) 06/06/16 06:05 Carbon Dioxide 21.8 mEq/L (21.0-31.0) 06/06/16 06:05 Anion Gap 8.8 (7.0-16.0) 06/06/16 06:05 BUN 12 mg/dL (7-25) 06/06/16 06:05 Creatinine 0.7 mg/dL (0.6-1.2) 06/06/16 06:05 Est GFR ( Amer) > 60.0 ml/min (>90) 06/06/16 06:05 Est GFR (Non-Af Amer) > 60.0 ml/min 06/06/16 06:05 BUN/Creatinine Ratio 17.1 06/06/16 06:05 Glucose 99 mg/dL (70-105) 06/06/16 06:05 Whole Bld Lactic Acid 0.85 mmol/L (0.60-1.99) 06/05/16 05:57 Calcium 8.4 mg/dL (8.6-10.3) L 06/06/16 06:05 Total Bilirubin 4.2 mg/dL (0.3-1.0) H 06/06/16 06:05 Direct Bilirubin 1.13 mg/dL (0.0-0.2) H 06/05/16 05:20 AST 55 U/L (13-39) H 06/06/16 06:05 ALT 33 U/L (7-52) 06/06/16 06:05 Alkaline Phosphatase 53 U/L (34-104) 06/06/16 06:05 Creatine Kinase 29 U/L (30-223) L 06/05/16 05:20 Troponin I 0.02 ng/mL (0.01-0.05) 06/05/16 05:20 B-Natriuretic Peptide 211.0 pg/mL (5.0-100.0) H 06/05/16 05:20 Total Protein 6.1 gm/dL (6.0-8.3) 06/06/16 06:05 Albumin 2.5 gm/dL (3.7-5.3) L 06/06/16 06:05 Globulin 3.6 gm/dL 06/06/16 06:05 Albumin/Globulin Ratio 0.7 (1.0-1.8) L 06/06/16 06:05 Triglycerides 145 mg/dL (<150) 06/05/16 05:20 Cholesterol 370 mg/dL (<200) H 06/05/16 05:20 LDL Cholesterol Direct 127 mg/dL (75-193) 06/05/16 05:20 HDL Cholesterol 56 mg/dL (23-92) 06/05/16 05:20 Lipase 79 U/L (11-82) 06/05/16 05:20 Urine Source CLEAN C 06/05/16 07:00 Urine Color YELLOW 06/05/16 07:00 Urine Clarity SL. CLOUDY (CLEAR) 06/05/16 07:00 Urine pH 7.0 06/05/16 07:00 Ur Specific [place] (1.005-1.030) 06/05/16 07:00 Urine Protein NEGATIVE mg/dL (NEGATIVE) 06/05/16 07:00 Urine Glucose (UA) NEGATIVE mg/dL (NEGATIVE) 06/05/16 07:00 Urine Ketones NEGATIVE mg/dL (NEGATIVE) 06/05/16 07:00 Urine Blood NEGATIVE (NEGATIVE) 06/05/16 07:00 Urine Nitrate NEGATIVE (NEGATIVE) 06/05/16 07:00 Urine Bilirubin NEGATIVE (NEGATIVE) 06/05/16 07:00 Urine Urobilinogen 0.2 E.U./dL (0.2 - 1.0) 06/05/16 07:00 Ur Leukocyte Esterase NEGATIVE (NEGATIVE) 06/05/16 07:00 Urine RBC 0-1 /hpf (0-5) 06/05/16 07:00 Urine WBC NONE SEEN /hpf (0-5) 06/05/16 07:00 Ur Epithelial Cells OCCASIONAL /lpf (FEW) 06/05/16 07:00 Urine Bacteria OCCASIONAL /hpf (NONE SEEN) 06/05/16 07:00 Urine Opiates Screen NEGATIVE (NEGATIVE) 06/05/16 07:00 Ur Barbiturates Screen NEGATIVE (NEGATIVE) 06/05/16 07:00 Ur Phencyclidine Scrn NEGATIVE (NEGATIVE) 06/05/16 07:00 Amphetamines Screen NEGATIVE (NEGATIVE) 06/05/16 07:00 U Methamphetamines Scrn NEGATIVE (NEGATIVE) 06/05/16 07:00 U Benzodiazepines Scrn NEGATIVE (NEGATIVE) 06/05/16 07:00 U Cocaine Metab Screen NEGATIVE (NEGATIVE) 06/05/16 07:00 U Cannabinoids Screen NEGATIVE (NEGATIVE) 06/05/16 07:00 - Physical Exam Vitals and I&O: Vital Signs Temp 98.2 F 06/06/16 12:08 Pulse 108 06/06/16 12:08 Resp 18 06/06/16 12:08 BP 150/83 06/06/16 12:08 Pulse Ox 100 06/06/16 12:08 Intake & Output 06/05/16 06/06/16 06/06/16 18:59 06:59 18:59 Intake Total 350 1100 Balance 350 1100 Intake: Intake, IV Amount 50 1100 D5-0.45NS 1,000 ml @ 75 1000 mls/hr IV .[id number] [facility] Rx #:[id number] Piperacillin Sodium/ 50 100 Tazobact 3.375 gm In Sodium Chloride 0.9% 50 ml @ 100 mls/hr IV Q8HR [facility] Rx#:[id number] Oral 300 Other: # Voids 3 # Bowel Movements 0 Active Medications: Current Medications Dextrose/Sodium Chloride (D5-0.45ns) 1,000 mls @ 75 mls/hr IV .[id number] [facility] Stop: 08/04/16 07:29 Last Admin: 06/06/16 00:37 Dose: 75 mls/hr Piperacillin Sod/Tazobactam (Sod 3.375 gm/ Sodium Chloride) 50 mls @ 100 mls/ hr IV Q8HR [facility] Stop: 08/04/16 12:59 Last Admin: 06/06/16 13:03 Dose: 100 mls/hr Morphine Sulfate (Morphine) 1 mg IVP Q3HR PRN PRN Reason: Pain (Mild) Stop: 08/04/16 07:15 Morphine Sulfate (Morphine) 2 mg IVP Q3HR PRN PRN Reason: Pain (Severe) Stop: 08/04/16 07:17 Ondansetron HCl (Zofran) 4 mg IV Q6H PRN PRN Reason: Nausea / Vomiting Stop: 08/04/16 07:29 Assessment/Plan - Problem List Patient Problems: All Active Problems cirrhosis of liver (Acute) epigastric pain (Acute) epigastric pain (Acute) htn (Acute) leukocytosis (Acute)
--- NOTE | 2016-06-06 14:16 | Infectious Disease Prog Note ---
Infectious Disease Subjective - Review of Systems Service Date: 06/06/16 Subjective: Feels better, no fever. WBC count is improving. Infectious Disease Objective - Results Result Diagrams: 06/06/16 06:05 06/06/16 06:05 Recent Labs: Laboratory Last Values WBC 12.5 Th/cmm (4.8-10.8) H D 06/06/16 06:05 RBC 2.91 Mil/cmm (3.80-5.10) L 06/06/16 06:05 Hgb 9.7 gm/dL (11.7-15.5) L 06/06/16 06:05 Hct 27.9 % (35.0-45.0) L D 06/06/16 06:05 MCV 95.7 fl (81-100) 06/06/16 06:05 MCH 33.4 pg (27.0-31.0) H 06/06/16 06:05 MCHC Differential 34.9 pg (28.0-36.0) 06/06/16 06:05 RDW 14.2 % (11.5-20.0) 06/06/16 06:05 Plt Count 150 Th/cmm (150-400) D 06/06/16 06:05 MPV 8.3 fl 06/06/16 06:05 Band Neutrophils % 6 % (0-10) 06/05/16 05:20 Neutrophils (Manual) 75 % (40-80) 06/06/16 06:05 Lymphocytes 17 % (20-50) L 06/06/16 06:05 Monocytes 7 % (2-10) 06/06/16 06:05 Eosinophils 1 % (0-5) 06/06/16 06:05 Platelet Estimate ADEQUATE (NORMAL) 06/06/16 06:05 Platelet Morphology NORMAL (NORMAL) 06/06/16 06:05 RBC Morph Micro Appear NORMAL (NORMAL) 06/06/16 06:05 PT 16.1 SECONDS (9.5-11.5) H 06/06/16 06:05 INR 1.52 (0.5-1.4) H 06/06/16 06:05 PTT (Actin FS) 28.9 SECONDS (26.0-38.0) 06/06/16 06:05 Sodium 133 mEq/L (136-145) L 06/06/16 06:05 Potassium 3.6 mEq/L (3.5-5.1) 06/06/16 06:05 Chloride 106 mEq/L (98-107) 06/06/16 06:05 Carbon Dioxide 21.8 mEq/L (21.0-31.0) 06/06/16 06:05 Anion Gap 8.8 (7.0-16.0) 06/06/16 06:05 BUN 12 mg/dL (7-25) 06/06/16 06:05 Creatinine 0.7 mg/dL (0.6-1.2) 06/06/16 06:05 Est GFR ( Amer) > 60.0 ml/min (>90) 06/06/16 06:05 Est GFR (Non-Af Amer) > 60.0 ml/min 06/06/16 06:05 BUN/Creatinine Ratio 17.1 06/06/16 06:05 Glucose 99 mg/dL (70-105) 06/06/16 06:05 Whole Bld Lactic Acid 0.85 mmol/L (0.60-1.99) 06/05/16 05:57 Calcium 8.4 mg/dL (8.6-10.3) L 06/06/16 06:05 Total Bilirubin 4.2 mg/dL (0.3-1.0) H 06/06/16 06:05 Direct Bilirubin 1.13 mg/dL (0.0-0.2) H 06/05/16 05:20 AST 55 U/L (13-39) H 06/06/16 06:05 ALT 33 U/L (7-52) 06/06/16 06:05 Alkaline Phosphatase 53 U/L (34-104) 06/06/16 06:05 Creatine Kinase 29 U/L (30-223) L 06/05/16 05:20 Troponin I 0.02 ng/mL (0.01-0.05) 06/05/16 05:20 B-Natriuretic Peptide 211.0 pg/mL (5.0-100.0) H 06/05/16 05:20 Total Protein 6.1 gm/dL (6.0-8.3) 06/06/16 06:05 Albumin 2.5 gm/dL (3.7-5.3) L 06/06/16 06:05 Globulin 3.6 gm/dL 06/06/16 06:05 Albumin/Globulin Ratio 0.7 (1.0-1.8) L 06/06/16 06:05 Triglycerides 145 mg/dL (<150) 06/05/16 05:20 Cholesterol 370 mg/dL (<200) H 06/05/16 05:20 LDL Cholesterol Direct 127 mg/dL (75-193) 06/05/16 05:20 HDL Cholesterol 56 mg/dL (23-92) 06/05/16 05:20 Lipase 79 U/L (11-82) 06/05/16 05:20 Urine Source CLEAN C 06/05/16 07:00 Urine Color YELLOW 06/05/16 07:00 Urine Clarity SL. CLOUDY (CLEAR) 06/05/16 07:00 Urine pH 7.0 06/05/16 07:00 Ur Specific [place] (1.005-1.030) 06/05/16 07:00 Urine Protein NEGATIVE mg/dL (NEGATIVE) 06/05/16 07:00 Urine Glucose (UA) NEGATIVE mg/dL (NEGATIVE) 06/05/16 07:00 Urine Ketones NEGATIVE mg/dL (NEGATIVE) 06/05/16 07:00 Urine Blood NEGATIVE (NEGATIVE) 06/05/16 07:00 Urine Nitrate NEGATIVE (NEGATIVE) 06/05/16 07:00 Urine Bilirubin NEGATIVE (NEGATIVE) 06/05/16 07:00 Urine Urobilinogen 0.2 E.U./dL (0.2 - 1.0) 06/05/16 07:00 Ur Leukocyte Esterase NEGATIVE (NEGATIVE) 06/05/16 07:00 Urine RBC 0-1 /hpf (0-5) 06/05/16 07:00 Urine WBC NONE SEEN /hpf (0-5) 06/05/16 07:00 Ur Epithelial Cells OCCASIONAL /lpf (FEW) 06/05/16 07:00 Urine Bacteria OCCASIONAL /hpf (NONE SEEN) 06/05/16 07:00 Urine Opiates Screen NEGATIVE (NEGATIVE) 06/05/16 07:00 Ur Barbiturates Screen NEGATIVE (NEGATIVE) 06/05/16 07:00 Ur Phencyclidine Scrn NEGATIVE (NEGATIVE) 06/05/16 07:00 Amphetamines Screen NEGATIVE (NEGATIVE) 06/05/16 07:00 U Methamphetamines Scrn NEGATIVE (NEGATIVE) 06/05/16 07:00 U Benzodiazepines Scrn NEGATIVE (NEGATIVE) 06/05/16 07:00 U Cocaine Metab Screen NEGATIVE (NEGATIVE) 06/05/16 07:00 U Cannabinoids Screen NEGATIVE (NEGATIVE) 06/05/16 07:00 - Physical Exam Vitals and I&O: Vital Signs Temp 98.2 F 06/06/16 12:08 Pulse 108 06/06/16 12:08 Resp 18 06/06/16 12:08 BP 150/83 06/06/16 12:08 Pulse Ox 100 06/06/16 12:08 Intake & Output 06/05/16 06/06/16 06/06/16 18:59 06:59 18:59 Intake Total 350 1100 Balance 350 1100 Intake: Intake, IV Amount 50 1100 D5-0.45NS 1,000 ml @ 75 1000 mls/hr IV .[id number] [facility] Rx #:[id number] Piperacillin Sodium/ 50 100 Tazobact 3.375 gm In Sodium Chloride 0.9% 50 ml @ 100 mls/hr IV Q8HR [facility] Rx#:[id number] Oral 300 Other: # Voids 3 # Bowel Movements 0 Active Medications: Current Medications Dextrose/Sodium Chloride (D5-0.45ns) 1,000 mls @ 75 mls/hr IV .[id number] [facility] Stop: 08/04/16 07:29 Last Admin: 06/06/16 00:37 Dose: 75 mls/hr Piperacillin Sod/Tazobactam (Sod 3.375 gm/ Sodium Chloride) 50 mls @ 100 mls/ hr IV Q8HR [facility] Stop: 08/04/16 12:59 Last Admin: 06/06/16 13:03 Dose: 100 mls/hr Morphine Sulfate (Morphine) 1 mg IVP Q3HR PRN PRN Reason: Pain (Mild) Stop: 08/04/16 07:15 Morphine Sulfate (Morphine) 2 mg IVP Q3HR PRN PRN Reason: Pain (Severe) Stop: 08/04/16 07:17 Ondansetron HCl (Zofran) 4 mg IV Q6H PRN PRN Reason: Nausea / Vomiting Stop: 08/04/16 07:29 General: no acute distress, well developed, well nourished HEENT: atraumatic, normocephalic, PERRLA, EOMI Neck: supple, no thyromegaly Cardiovascular: S1S2, regular Lungs: clear to auscultation bilaterally, clear to percussion Abdomen: soft, no tender, no distended Extremities: no cyanosis, no clubbing, no edema Neurological: awake, alert, oriented Skin: intact Infectious Disease Assmt/Plan - Problem List Patient Problems: All Active Problems cirrhosis of liver (Acute) epigastric pain (Acute) epigastric pain (Acute) htn (Acute) leukocytosis (Acute) - Assessment Assessment: 1. Leukocytosis. 2, Abdominal pain - improved. cholecytitis, vs gastritis. - Plan Plan: Continue same treatment. MRCP ordered.
[2016-06-07] MEDS: D5-0.45NS 1,000 ML IV SCH (06:48)
--- NOTE | 2016-06-07 08:46 | General Progress Note ---
Subjective - Review of Systems Subjective: abd pain Objective - Results Result Diagrams: 06/06/16 06:05 06/06/16 06:05 Recent Labs: Laboratory Last Values WBC 12.5 Th/cmm (4.8-10.8) H D 06/06/16 06:05 RBC 2.91 Mil/cmm (3.80-5.10) L 06/06/16 06:05 Hgb 9.7 gm/dL (11.7-15.5) L 06/06/16 06:05 Hct 27.9 % (35.0-45.0) L D 06/06/16 06:05 MCV 95.7 fl (81-100) 06/06/16 06:05 MCH 33.4 pg (27.0-31.0) H 06/06/16 06:05 MCHC Differential 34.9 pg (28.0-36.0) 06/06/16 06:05 RDW 14.2 % (11.5-20.0) 06/06/16 06:05 Plt Count 150 Th/cmm (150-400) D 06/06/16 06:05 MPV 8.3 fl 06/06/16 06:05 Band Neutrophils % 6 % (0-10) 06/05/16 05:20 Neutrophils (Manual) 75 % (40-80) 06/06/16 06:05 Lymphocytes 17 % (20-50) L 06/06/16 06:05 Monocytes 7 % (2-10) 06/06/16 06:05 Eosinophils 1 % (0-5) 06/06/16 06:05 Platelet Estimate ADEQUATE (NORMAL) 06/06/16 06:05 Platelet Morphology NORMAL (NORMAL) 06/06/16 06:05 RBC Morph Micro Appear NORMAL (NORMAL) 06/06/16 06:05 PT 16.1 SECONDS (9.5-11.5) H 06/06/16 06:05 INR 1.52 (0.5-1.4) H 06/06/16 06:05 PTT (Actin FS) 28.9 SECONDS (26.0-38.0) 06/06/16 06:05 Sodium 133 mEq/L (136-145) L 06/06/16 06:05 Potassium 3.6 mEq/L (3.5-5.1) 06/06/16 06:05 Chloride 106 mEq/L (98-107) 06/06/16 06:05 Carbon Dioxide 21.8 mEq/L (21.0-31.0) 06/06/16 06:05 Anion Gap 8.8 (7.0-16.0) 06/06/16 06:05 BUN 12 mg/dL (7-25) 06/06/16 06:05 Creatinine 0.7 mg/dL (0.6-1.2) 06/06/16 06:05 Est GFR ( Amer) > 60.0 ml/min (>90) 06/06/16 06:05 Est GFR (Non-Af Amer) > 60.0 ml/min 06/06/16 06:05 BUN/Creatinine Ratio 17.1 06/06/16 06:05 Glucose 99 mg/dL (70-105) 06/06/16 06:05 Whole Bld Lactic Acid 0.85 mmol/L (0.60-1.99) 06/05/16 05:57 Calcium 8.4 mg/dL (8.6-10.3) L 06/06/16 06:05 Total Bilirubin 4.2 mg/dL (0.3-1.0) H 06/06/16 06:05 Direct Bilirubin 1.13 mg/dL (0.0-0.2) H 06/05/16 05:20 AST 55 U/L (13-39) H 06/06/16 06:05 ALT 33 U/L (7-52) 06/06/16 06:05 Alkaline Phosphatase 53 U/L (34-104) 06/06/16 06:05 Creatine Kinase 29 U/L (30-223) L 06/05/16 05:20 Troponin I 0.02 ng/mL (0.01-0.05) 06/05/16 05:20 B-Natriuretic Peptide 211.0 pg/mL (5.0-100.0) H 06/05/16 05:20 Total Protein 6.1 gm/dL (6.0-8.3) 06/06/16 06:05 Albumin 2.5 gm/dL (3.7-5.3) L 06/06/16 06:05 Globulin 3.6 gm/dL 06/06/16 06:05 Albumin/Globulin Ratio 0.7 (1.0-1.8) L 06/06/16 06:05 Triglycerides 145 mg/dL (<150) 06/05/16 05:20 Cholesterol 370 mg/dL (<200) H 06/05/16 05:20 LDL Cholesterol Direct 127 mg/dL (75-193) 06/05/16 05:20 HDL Cholesterol 56 mg/dL (23-92) 06/05/16 05:20 Lipase 79 U/L (11-82) 06/05/16 05:20 Urine Source CLEAN C 06/05/16 07:00 Urine Color YELLOW 06/05/16 07:00 Urine Clarity SL. CLOUDY (CLEAR) 06/05/16 07:00 Urine pH 7.0 06/05/16 07:00 Ur Specific [place] (1.005-1.030) 06/05/16 07:00 Urine Protein NEGATIVE mg/dL (NEGATIVE) 06/05/16 07:00 Urine Glucose (UA) NEGATIVE mg/dL (NEGATIVE) 06/05/16 07:00 Urine Ketones NEGATIVE mg/dL (NEGATIVE) 06/05/16 07:00 Urine Blood NEGATIVE (NEGATIVE) 06/05/16 07:00 Urine Nitrate NEGATIVE (NEGATIVE) 06/05/16 07:00 Urine Bilirubin NEGATIVE (NEGATIVE) 06/05/16 07:00 Urine Urobilinogen 0.2 E.U./dL (0.2 - 1.0) 06/05/16 07:00 Ur Leukocyte Esterase NEGATIVE (NEGATIVE) 06/05/16 07:00 Urine RBC 0-1 /hpf (0-5) 06/05/16 07:00 Urine WBC NONE SEEN /hpf (0-5) 06/05/16 07:00 Ur Epithelial Cells OCCASIONAL /lpf (FEW) 06/05/16 07:00 Urine Bacteria OCCASIONAL /hpf (NONE SEEN) 06/05/16 07:00 Urine Opiates Screen NEGATIVE (NEGATIVE) 06/05/16 07:00 Ur Barbiturates Screen NEGATIVE (NEGATIVE) 06/05/16 07:00 Ur Phencyclidine Scrn NEGATIVE (NEGATIVE) 06/05/16 07:00 Amphetamines Screen NEGATIVE (NEGATIVE) 06/05/16 07:00 U Methamphetamines Scrn NEGATIVE (NEGATIVE) 06/05/16 07:00 U Benzodiazepines Scrn NEGATIVE (NEGATIVE) 06/05/16 07:00 U Cocaine Metab Screen NEGATIVE (NEGATIVE) 06/05/16 07:00 U Cannabinoids Screen NEGATIVE (NEGATIVE) 06/05/16 07:00 - Physical Exam Vitals and I&O: Vital Signs Temp 99.4 F 06/07/16 08:31 Pulse 80 06/07/16 08:31 Resp 17 06/07/16 08:31 BP 138/79 06/07/16 08:31 Pulse Ox 99 06/07/16 08:31 Intake & Output 06/06/16 06/07/16 06/07/16 18:59 06:59 18:59 Intake Total 1050 1300 Balance 1050 1300 Intake: Intake, IV Amount 1050 1100 D5-0.45NS 1,000 ml @ 75 1000 1000 mls/hr IV .[id number] [facility] Rx #:[id number] Piperacillin Sodium/ 50 100 Tazobact 3.375 gm In Sodium Chloride 0.9% 50 ml @ 100 mls/hr IV Q8HR [facility] Rx#:[id number] Oral 200 Active Medications: Current Medications Dextrose/Sodium Chloride (D5-0.45ns) 1,000 mls @ 75 mls/hr IV .[id number] [facility] Stop: 08/04/16 07:29 Last Admin: 06/07/16 06:48 Dose: 75 mls/hr Piperacillin Sod/Tazobactam (Sod 3.375 gm/ Sodium Chloride) 50 mls @ 100 mls/ hr IV Q8HR [facility] Stop: 08/04/16 12:59 Last Infusion: 06/07/16 05:52 Dose: Infused Morphine Sulfate (Morphine) 1 mg IVP Q3HR PRN PRN Reason: Pain (Mild) Stop: 08/04/16 07:15 Morphine Sulfate (Morphine) 2 mg IVP Q3HR PRN PRN Reason: Pain (Severe) Stop: 08/04/16 07:17 Ondansetron HCl (Zofran) 4 mg IV Q6H PRN PRN Reason: Nausea / Vomiting Stop: 08/04/16 07:29 General: No acute distress HEENT: Atraumatic Neck: Supple Cardiovascular: Regular rate Lungs: Clear to auscultation Abdomen: Bowel sounds Assessment/Plan - Problem List Patient Problems: All Active Problems cirrhosis of liver (Acute) epigastric pain (Acute) epigastric pain (Acute) htn (Acute) leukocytosis (Acute) - Plan Plan: monitor vitals/diet pain management ID eval
--- NOTE | 2016-06-07 10:35 | Infectious Disease Prog Note ---
Infectious Disease Subjective - Review of Systems Service Date: 06/07/16 Subjective: Feels better, no fever. WBC count is improving. Infectious Disease Objective - Results Result Diagrams: 06/06/16 06:05 06/06/16 06:05 Recent Labs: Laboratory Last Values WBC 12.5 Th/cmm (4.8-10.8) H D 06/06/16 06:05 RBC 2.91 Mil/cmm (3.80-5.10) L 06/06/16 06:05 Hgb 9.7 gm/dL (11.7-15.5) L 06/06/16 06:05 Hct 27.9 % (35.0-45.0) L D 06/06/16 06:05 MCV 95.7 fl (81-100) 06/06/16 06:05 MCH 33.4 pg (27.0-31.0) H 06/06/16 06:05 MCHC Differential 34.9 pg (28.0-36.0) 06/06/16 06:05 RDW 14.2 % (11.5-20.0) 06/06/16 06:05 Plt Count 150 Th/cmm (150-400) D 06/06/16 06:05 MPV 8.3 fl 06/06/16 06:05 Band Neutrophils % 6 % (0-10) 06/05/16 05:20 Neutrophils (Manual) 75 % (40-80) 06/06/16 06:05 Lymphocytes 17 % (20-50) L 06/06/16 06:05 Monocytes 7 % (2-10) 06/06/16 06:05 Eosinophils 1 % (0-5) 06/06/16 06:05 Platelet Estimate ADEQUATE (NORMAL) 06/06/16 06:05 Platelet Morphology NORMAL (NORMAL) 06/06/16 06:05 RBC Morph Micro Appear NORMAL (NORMAL) 06/06/16 06:05 PT 16.1 SECONDS (9.5-11.5) H 06/06/16 06:05 INR 1.52 (0.5-1.4) H 06/06/16 06:05 PTT (Actin FS) 28.9 SECONDS (26.0-38.0) 06/06/16 06:05 Sodium 133 mEq/L (136-145) L 06/06/16 06:05 Potassium 3.6 mEq/L (3.5-5.1) 06/06/16 06:05 Chloride 106 mEq/L (98-107) 06/06/16 06:05 Carbon Dioxide 21.8 mEq/L (21.0-31.0) 06/06/16 06:05 Anion Gap 8.8 (7.0-16.0) 06/06/16 06:05 BUN 12 mg/dL (7-25) 06/06/16 06:05 Creatinine 0.7 mg/dL (0.6-1.2) 06/06/16 06:05 Est GFR ( Amer) > 60.0 ml/min (>90) 06/06/16 06:05 Est GFR (Non-Af Amer) > 60.0 ml/min 06/06/16 06:05 BUN/Creatinine Ratio 17.1 06/06/16 06:05 Glucose 99 mg/dL (70-105) 06/06/16 06:05 Whole Bld Lactic Acid 0.85 mmol/L (0.60-1.99) 06/05/16 05:57 Calcium 8.4 mg/dL (8.6-10.3) L 06/06/16 06:05 Total Bilirubin 4.2 mg/dL (0.3-1.0) H 06/06/16 06:05 Direct Bilirubin 1.13 mg/dL (0.0-0.2) H 06/05/16 05:20 AST 55 U/L (13-39) H 06/06/16 06:05 ALT 33 U/L (7-52) 06/06/16 06:05 Alkaline Phosphatase 53 U/L (34-104) 06/06/16 06:05 Creatine Kinase 29 U/L (30-223) L 06/05/16 05:20 Troponin I 0.02 ng/mL (0.01-0.05) 06/05/16 05:20 B-Natriuretic Peptide 211.0 pg/mL (5.0-100.0) H 06/05/16 05:20 Total Protein 6.1 gm/dL (6.0-8.3) 06/06/16 06:05 Albumin 2.5 gm/dL (3.7-5.3) L 06/06/16 06:05 Globulin 3.6 gm/dL 06/06/16 06:05 Albumin/Globulin Ratio 0.7 (1.0-1.8) L 06/06/16 06:05 Triglycerides 145 mg/dL (<150) 06/05/16 05:20 Cholesterol 370 mg/dL (<200) H 06/05/16 05:20 LDL Cholesterol Direct 127 mg/dL (75-193) 06/05/16 05:20 HDL Cholesterol 56 mg/dL (23-92) 06/05/16 05:20 Lipase 79 U/L (11-82) 06/05/16 05:20 Urine Source CLEAN C 06/05/16 07:00 Urine Color YELLOW 06/05/16 07:00 Urine Clarity SL. CLOUDY (CLEAR) 06/05/16 07:00 Urine pH 7.0 06/05/16 07:00 Ur Specific [place] (1.005-1.030) 06/05/16 07:00 Urine Protein NEGATIVE mg/dL (NEGATIVE) 06/05/16 07:00 Urine Glucose (UA) NEGATIVE mg/dL (NEGATIVE) 06/05/16 07:00 Urine Ketones NEGATIVE mg/dL (NEGATIVE) 06/05/16 07:00 Urine Blood NEGATIVE (NEGATIVE) 06/05/16 07:00 Urine Nitrate NEGATIVE (NEGATIVE) 06/05/16 07:00 Urine Bilirubin NEGATIVE (NEGATIVE) 06/05/16 07:00 Urine Urobilinogen 0.2 E.U./dL (0.2 - 1.0) 06/05/16 07:00 Ur Leukocyte Esterase NEGATIVE (NEGATIVE) 06/05/16 07:00 Urine RBC 0-1 /hpf (0-5) 06/05/16 07:00 Urine WBC NONE SEEN /hpf (0-5) 06/05/16 07:00 Ur Epithelial Cells OCCASIONAL /lpf (FEW) 06/05/16 07:00 Urine Bacteria OCCASIONAL /hpf (NONE SEEN) 06/05/16 07:00 Urine Opiates Screen NEGATIVE (NEGATIVE) 06/05/16 07:00 Ur Barbiturates Screen NEGATIVE (NEGATIVE) 06/05/16 07:00 Ur Phencyclidine Scrn NEGATIVE (NEGATIVE) 06/05/16 07:00 Amphetamines Screen NEGATIVE (NEGATIVE) 06/05/16 07:00 U Methamphetamines Scrn NEGATIVE (NEGATIVE) 06/05/16 07:00 U Benzodiazepines Scrn NEGATIVE (NEGATIVE) 06/05/16 07:00 U Cocaine Metab Screen NEGATIVE (NEGATIVE) 06/05/16 07:00 U Cannabinoids Screen NEGATIVE (NEGATIVE) 06/05/16 07:00 - Physical Exam Vitals and I&O: Vital Signs Temp 99.4 F 06/07/16 08:31 Pulse 80 06/07/16 08:31 Resp 17 06/07/16 08:31 BP 138/79 06/07/16 08:31 Pulse Ox 99 06/07/16 08:31 Intake & Output 06/06/16 06/07/16 06/07/16 18:59 06:59 18:59 Intake Total 1050 1300 Balance 1050 1300 Intake: Intake, IV Amount 1050 1100 D5-0.45NS 1,000 ml @ 75 1000 1000 mls/hr IV .[id number] [facility] Rx #:[id number] Piperacillin Sodium/ 50 100 Tazobact 3.375 gm In Sodium Chloride 0.9% 50 ml @ 100 mls/hr IV Q8HR [facility] Rx#:[id number] Oral 200 Active Medications: Current Medications Dextrose/Sodium Chloride (D5-0.45ns) 1,000 mls @ 75 mls/hr IV .[id number] [facility] Stop: 08/04/16 07:29 Last Admin: 06/07/16 06:48 Dose: 75 mls/hr Piperacillin Sod/Tazobactam (Sod 3.375 gm/ Sodium Chloride) 50 mls @ 100 mls/ hr IV Q8HR [facility] Stop: 08/04/16 12:59 Last Infusion: 06/07/16 05:52 Dose: Infused Morphine Sulfate (Morphine) 1 mg IVP Q3HR PRN PRN Reason: Pain (Mild) Stop: 08/04/16 07:15 Morphine Sulfate (Morphine) 2 mg IVP Q3HR PRN PRN Reason: Pain (Severe) Stop: 08/04/16 07:17 Ondansetron HCl (Zofran) 4 mg IV Q6H PRN PRN Reason: Nausea / Vomiting Stop: 08/04/16 07:29 General: no acute distress, well developed, well nourished HEENT: atraumatic, normocephalic, PERRLA, EOMI, moist mucous membrane Neck: supple, no thyromegaly Cardiovascular: S1S2, regular Lungs: clear to auscultation bilaterally, clear to percussion Abdomen: soft, no tender, no distended Extremities: no cyanosis, no clubbing, no edema Neurological: awake, alert, oriented Skin: intact Infectious Disease Assmt/Plan - Problem List Patient Problems: All Active Problems cirrhosis of liver (Acute) epigastric pain (Acute) epigastric pain (Acute) htn (Acute) leukocytosis (Acute) - Assessment Assessment: 1. Leukocytosis. 2, Abdominal pain - improved. cholecytitis, vs gastritis. - Plan Plan: Continue same treatment. MRCP cancelled. change antibiotics to levaquin and flagyl.
--- NOTE | 2016-06-08 11:35 | Diagnostic Imaging Report ---
Pelvis single view Indication: pain Comparison: none Findings: An IUD is noted. There is mild contour irregularity of the bilateral femoral head/neck junctions laterally. The bilateral hip joints are preserved. No dislocation. SI joints are preserved. Impression: Mild contour irregularity of the bilateral lateral femoral head/neck junctions. Findings may be congenital. If there has been recent trauma and there is concern for an occult femoral neck fracture, further assessment with CT or MRI examination is recommended. IUD noted. In the setting of trauma, if clinical symptoms persist and there is continued concern for an occult fracture, follow up exams in 5-7 days is recommended. Final results were administered to the referring team on 06/08/2016.
--- NOTE | 2016-06-13 19:50 | Discharge Summary ---
HOSPITAL COURSE: The patient is a walk-in through the Emergency Room with a chief complaint of severe abdominal gastritis pain. From the Emergency Room, the patient was diagnosed with acalculous cholecystitis. The patient was admitted to the Med/Surg floor where the patient received some IV antibiotics, and surgical consult was also done to rule out cholelithiasis. HIDA scan was performed and came out negative for cholecystitis or cholelithiasis. There is a plan to do MRCP for the patient for confirmation of type of IUD for possible misplacement of the IUD, but apparently, the patient refused to go through with the procedure and otherwise the patient was discharged home with p.o. antibiotics. DISCHARGE DIAGNOSES: Include abdominal pain, liver cirrhosis, hypertension, and leukocytosis. DISCHARGE INSTRUCTIONS: To follow up with her primary care physician after taking the antibiotics. [facility]# [id number]
--- NOTE | 2016-06-14 01:07 | Discharge Summary ---
The patient came to the Emergency Room complaining of abdominal pain. The patient is known to have history of cirrhosis of the liver, ____ right upper quadrant, history of ____ hypertension. The patient had an initial diagnosis of possible acute cholecystitis rule out cholangitis, history of cirrhosis, history of hypertension. The patient was given IV antibiotics ____ consultants were involved including Dr. Witt and also the GI doctor. The patient improved. The patient is in stable condition. The patient had a HIDA scan, it was negative. The patient is in stable condition on 06/07/2016 and discharged with a diagnosis of improving cholecystitis, history of cirrhosis of the liver, history of hypertension. The patient was advised to come back and see me in 2 days and follow up with her doctor in 1 week. JOB# [id number]
== END 2016-06-07 16:00 | disposition home or self-care (01) | DRG 241 ==
LOC: ER 05:12 → MSI 07:14
PROVIDERS: ADMIT Internal Medicine; ATTEND Internal Medicine
DX: K29.70 Gastritis, unspecified, without bleeding (principal); K74.60 Unspecified cirrhosis of liver; E44.1 Mild protein-calorie malnutrition; I10 Essential (primary) hypertension; D72.829 Elevated white blood cell count, unspecified
CPT/HCPCS: 36415-UA; 72170-TC; 76705-TC; 78226-TC; 80053-TC; 80061-TC; 81001-TC; 82248-TC; 82550-TC; 83605; 83690-TC; 83880-TC; 84484-TC; 85007-TC; 85027-TC; 85610-TC; 93005; 96375; A9537; J0780; J1885; J2405; J2543; J7030